=== PATIENT | female | born 1995 | race American Indian/Alaskan Native ===

== ENCOUNTER 2021-04-10 01:56 | Emergency (ER) | payer OTHER ==
[2021-04-10] MEDS ORDERED: methylPREDNISolone Sod Succinate 125 MG/2 ML INJ IM ONE (04:32)
[2021-04-10] MEDS ORDERED: IPRATROPIUM/ALBUTEROL SULFATE 3 ML AMPUL.NEB IH ONE (04:32)
[2021-04-10] MEDS ORDERED: IBUPROFEN 600 MG TAB PO ONE (04:32)
--- NOTE | 2021-04-10 05:40 | XRay Report ---
CHEST 2 VIEWS INDICATION / CLINICAL INFORMATION: COUGH. COMPARISON: None available. FINDINGS: SUPPORT DEVICES: None. HEART / MEDIASTINUM: No significant abnormality. LUNGS / PLEURA: No significant pulmonary or pleural abnormality. No pneumothorax. ADDITIONAL FINDINGS: No significant additional findings. IMPRESSION: 1. No acute findings. Signer Name: Jossie Mosquera MD Signed: 04/10/2021 5:35 AM Workstation Name: [id number]
--- NOTE | 2021-04-10 06:32 | Emergency Department Report ---
- General Chief Complaint: Chest Pain Stated Complaint: CHEST AND BACK PAIN Source: patient Mode of arrival: Ambulatory Limitations: No Limitations - History of Present Illness Initial Comments: Patient is a 25-year-old -Greek male with past medical history of asthma with frequent exacerbations presents to the ED with complaint of acute onset persistent nasal and sinus congestion, persistent dry cough with pleuritic chest pain, mid posterior thoracic pain and left-sided chest wall pain that is reproducible with movement or lifting for the last 1 week. Patient states that she has been using her albuterol inhaler more frequently in the last 1 week due to persistent shortness of breath, wheezing, dry cough, and nasal and sinus congestion. Patient states that she also performs heavy lifting at work and noticed that the pain in her left chest wall got worse after heavy lifting at work about a week ago. Patient denies dizziness, syncope, nausea and vomiting, fever, chills, fall, neck pain, headache, abdominal pain, diaphoresis, numbness and tingling or weakness of upper extremities bilaterally. MD Complaint: cough, rhinorrhea, nasal congestion, sinus pain, other (Pleuritic chest pain; mid posterior thoracic pain) -: Sudden, week(s) (1) Severity: severe Severity scale (0 -10): 7 Quality: sharp, aching Consistency: constant Improves With: nothing Worsens With: deep breaths, other (Movement; heavy lifting) Context: other (Chronic asthma) Associated Symptoms: denies other symptoms, rhinorrhea, cough. denies: fever, chills, diaphoresis, headache, nasal congestion, sore throat, stiff neck, chest pain, shortness of breath, abdominal pain, nausea, vomiting, diarrhea, right sweats, weight loss, hoarseness, ear pain Treatments Prior to Arrival: "cold medicine" - Related Data Allergies Allergy/AdvReac Type Severity Reaction Status Date / Time No Known Allergies Allergy Verified 04/10/21 04:45 ED Review of Systems ROS: Stated complaint: CHEST AND BACK PAIN Other details as noted in HPI Constitutional: denies: chills, fever Eyes: denies: eye pain, eye discharge, vision change ENT: congestion, other (Frontal sinus pressure and headache). denies: ear pain, throat pain Respiratory: cough, shortness of breath, wheezing Cardiovascular: chest pain (Pleuritic chest pain). denies: palpitations Endocrine: no symptoms reported Gastrointestinal: denies: abdominal pain, nausea, vomiting, diarrhea Genitourinary: denies: urgency, dysuria, discharge Musculoskeletal: back pain (Mid posterior thoracic pain). denies: joint swelling, arthralgia Skin: denies: rash, lesions Neurological: headache (Frontal ). denies: weakness, paresthesias Psychiatric: denies: anxiety, depression Hematological/Lymphatic: denies: easy bleeding, easy bruising ED Past Medical Hx - Past Medical History Previous Medical History?: Yes Hx Asthma: Yes - Surgical History Past Surgical History?: No ED Physical Exam - General Limitations: No Limitations General appearance: alert, in no apparent distress - Head Head exam: Present: atraumatic, normocephalic, normal inspection - Eye Eye exam: Present: normal appearance, PERRL, EOMI Pupils: Present: normal accommodation - ENT ENT exam: Present: normal exam, normal orophraynx, mucous membranes moist, TM's normal bilaterally, normal external ear exam - Neck Neck exam: Present: normal inspection, full ROM. Absent: tenderness - Respiratory Respiratory exam: Present: wheezes (Mildly diffuse coarse wheezes throughout), chest wall tenderness (Palpable reproducible anterior left-sided chest wall tenderness). Absent: respiratory distress, rales, rhonchi, accessory muscle use, decreased breath sounds, prolonged expiratory - Cardiovascular Cardiovascular Exam: Present: regular rate, normal rhythm, normal heart sounds. Absent: systolic murmur, diastolic murmur, rubs, gallop - GI/Abdominal GI/Abdominal exam: Present: soft, normal bowel sounds. Absent: distended, tenderness, guarding, hyperactive bowel sounds, hypoactive bowel sounds, org anomegaly - Extremities Exam Extremities exam: Present: normal inspection, full ROM, normal capillary refill - Back Exam Back exam: Present: normal inspection, full ROM. Absent: tenderness, CVA tenderness (R), CVA tenderness (L), muscle spasm, paraspinal tenderness, vertebral tenderness - Neurological Exam Neurological exam: Present: alert, oriented X3, CN II-XII intact, normal gait, reflexes normal - Psychiatric Psychiatric exam: Present: normal affect, normal mood - Skin Skin exam: Present: warm, dry, intact, normal color. Absent: rash ED Course Vital Signs 04/10/21 04/10/21 04/10/21 01:58 05:04 06:27 Temperature 99.0 F 97.8 F Pulse Rate 69 77 Respiratory 18 14 18 Rate Blood Pressure 117/80 Blood Pressure 130/70 [Left] O2 Sat by Pulse 98 95 Oximetry ED Medical Decision Making - Radiology Data Radiology results: report reviewed, image reviewed [facility] [address] [place] [address] XRay Report Signed Patient: CATA SORENSON MR#: [id number] : 1995 Acct:[id number] Age/Sex: 25 / F A DM Date: 04/10/21 Loc: ED Attending Dr: Ordering Physician: FIDELINA CARD Date of Service: 04/10/21 Procedure(s): XR chest routine 2V Accession Number(s): [id number] cc: FIDELINA CARD Fluoro Time In Minutes: CHEST 2 VIEWS INDICATION / CLINICAL INFORMATION: COUGH. COMPARISON: None available. FINDINGS: SUPPORT DEVICES: None. HEART / MEDIASTINUM: No significant abnormality. LUNGS / PLEURA: No significant pulmonary or pleural abnormality. No pneumothorax. ADDITIONAL FINDINGS: No significant additional findings. IMPRESSION: 1. No acute findings. Signer Name: Jossie Mosquera MD Signed: 04/10/2021 5:35 AM Workstation Name: [id number] Transcribed By: JR Dictated By: Jossie Mosquera MD Electronically Authenticated By: Jossie Mosquera MD Signed Date/Time: 04/10/21534 DD/ 4 TD/TT: Print - Medical Decision Making This is a 25-year-old -Greek male with past medical history of asthma with frequent exacerbations presents to the ED with complaint of acute onset persistent nasal and sinus congestion, persistent dry cough with pleuritic chest pain, mid posterior thoracic pain and left-sided chest wall pain that is reproducible with movement or lifting for the last 1 week. Patient states that she has been using her albuterol inhaler more frequently in the last 1 week due to persistent shortness of breath, wheezing, dry cough, and nasal and sinus congestion. Patient states that she also performs heavy lifting at work and noticed that the pain in her left chest wall got worse after heavy lifting at work about a week ago. In the ED, patient is alert and oriented x3 and is not in any distress. Patient was treated in the ED with DuoNeb and also given Solu- Medrol 125 mg intermuscular injection in the ED. Chest x-ray showed no acute cardiopulmonary abnormalities or pneumonitis. Patient however eloped from the ED after receiving treatment and declined to sign any paperwork for discharge from the ED. - Differential Diagnosis Asthma; bronchitis; muscle strain; costochondritis; URI; sinusitis; pneumon Critical care attestation.: If time is entered above; I have spent that time in minutes in the direct care of this critically ill patient, excluding procedure time. ED Disposition Clinical Impression: Acute upper respiratory infection, Acute bronchitis with asthma with acute exacerbation Muscle strain of chest wall Qualifiers: Encounter type: initial encounter Qualified Code(s): S29.011A - Strain of muscle and tendon of front wall of thorax, initial encounter Disposition: 07 LEFT AGAINST MEDICAL ADVICE Is pt being admited?: No Does the pt Need Aspirin: No Condition: Undetermined Instructions: Muscle Strain, [id number], Upper Respiratory Infection, Adult, [id number], Cough, Adult, [id number], Acute Bronchitis, Adult, [id number], Asthma, Adult, [id number] Referrals: [facility] [Provider Group] - 3-5 Days Time of Disposition: 05:20 Print Language: NIGERIAN
[2021-04-10 07:12] VITALS: BP 124/82
== END 2021-04-10 07:13 | disposition home or self-care (01) ==
LOC: ED 01:56
DX: S29.011A Strain of muscle and tendon of front wall of thorax, initial encounter (principal); J06.9 Acute upper respiratory infection, unspecified; J20.9 Acute bronchitis, unspecified; J45.901 Unspecified asthma with (acute) exacerbation; J45.909 Unspecified asthma, uncomplicated; X50.9XXA Other and unspecified overexertion or strenuous movements or postures, initial encounter; Y93.89 Activity, other specified; Y92.59 Other trade areas as the place of occurrence of the external cause; Y99.0 Civilian activity done for income or pay
CPT/HCPCS: 71046; 96372; 99284; J2930; 94640; 99283